=== PATIENT | male | born 1950 | race Caucasian/White ===

== ENCOUNTER 2020-10-10 09:07 | Emergency (ER) | payer BC, SELFPAY ==
[2020-10-10 09:20] VITALS: BP 140/63; PULSE 73; RESP 18; TEMP 37.1; O2SAT 98
--- NOTE | 2020-10-10 10:00 | ED.URI ---
HPI - URI/Sore Throat General Chief Complaint: Upper Respiratory Infection Stated Complaint: Congestion,Cough Time Seen by Provider: 10/10/20 09:44 Source: patient and RN notes reviewed Mode of arrival: ambulatory Limitations: no limitations History of Present Illness HPI Narrative: Patient presents today with a 1 week history of postnasal drip and a 3-day history of severe cough that has worsened since last night. Also reports rhinorrhea. Patient was exposed to RSV over 1 week ago by his 1-year-old granddaughter who contracted it at daycare. Patient has been taking Tylenol and cough drops at home without much relief. MD elicited complaint: cough Related Data Home Medications Medication Instructions Recorded Confirmed amlodipine 10/10/20 aspirin [Adult Low Dose Aspirin] 81 mg PO DAILY 10/10/20 10/10/20 atorvastatin 10/10/20 carvedilol 10/10/20 cholecalciferol (vitamin D3) 25 mcg PO DAILY 10/10/20 10/10/20 [Vitamin D3] ezetimibe mg 10/10/20 metformin mg PO 10/10/20 mirabegron [Myrbetriq] mg PO 10/10/20 omeprazole 10/10/20 vitamin A80-hyeho acid 1 tablet PO DAILY 10/10/20 10/10/20 Allergies Allergy/AdvReac Type Severity Reaction Status Date / Time gabapentin Allergy Itching Verified 10/10/20 09:29 Review of Systems Review of Systems: CONSTITUTIONAL: Denies body aches, fever, chills, or sweats. EYES: Denies visual changes, redness, or discharge. ENT: Denies congestion, sore throat, or otalgia.+ Rhinorrhea, postnasal drip CARDIOVASCULAR: Denies chest pain, palpitations, or edema. RESPIRATORY: Denies dyspnea.+ Cough GASTROINTESTINAL: Denies abdominal pain, nausea, vomiting, or diarrhea. GENITOURINARY: Denies dysuria or hematuria. SKIN: Denies rash, itching, or wounds. MUSCULOSKELETAL: Denies back pain, joint pain, or myalgia. NEUROLOGIC: Denies headache, numbness, tingling, or weakness. PSYCH: Denies depression or anxiety. [facility] Past Medical History Medical History (Updated 10/10/20 @ 10:04 by Diane Persaud, HEAD BUCKER, ) Diabetes High cholesterol Hypertension Sleep apnea Comments At time of signature, I have reviewed and agree with nursing past medical, surgical, social and family history unless otherwise noted. Please see nursing chart for further information. There is no relevant family history pertinent to the presenting complaint Exam Narrative: GENERAL: Well-appearing, well-nourished, and in no acute distress. HEAD: Normocephalic, atraumatic. EYES: EOMI. No redness or drainage. Conjunctivae normal. ENT: Mucous membranes pink and moist. Nares clear. No rhinorrhea. TMs normal bilaterally. Throat normal. Uvula midline. NECK: Normal AROM. Supple. No lymphadenopathy. CHEST: No respiratory distress. Clear to auscultation. Frequent harsh cough HEART: Regular rate and rhythm. No murmur appreciated. Normal peripheral pulses. EXTREMITIES: Normal range of motion. No edema. SKIN: Warm, dry, no rash. Capillary refill normal. Normal skin turgor. NEURO: No focal deficits. Alert and oriented x3. Gait steady. PSYCH: Normal affect. No signs of depression or anxiety. Course Vital Signs Vital signs: Vital Signs Temperature 98.8 F 10/10/20 09:20 Pulse Rate 73 10/10/20 09:20 Respiratory Rate 18 10/10/20 09:20 Blood Pressure 140/63 10/10/20 09:20 Pulse Oximetry 98 10/10/20 09:20 Temperature 98.8 F 10/10/20 09:20 Pulse Rate 73 10/10/20 09:20 Respiratory Rate 18 10/10/20 09:20 Blood Pressure 140/63 10/10/20 09:20 Pulse Oximetry 98 10/10/20 09:20 Reviewed. Pt has been instructed to follow up with his PCP regarding his elevated blood pressure today. MDM - URI/Sore Throat Differential Diagnosis Differential diagnosis: Likely upper respiratory infection, viral infection, bronchitis and other (RSV, COVID-19) Lab Data Attestation: I reviewed the patient's lab results. Labs: RSV Positive
== END 2020-10-10 10:12 | disposition home or self-care (01) ==
PROVIDERS: Emergency Provider Nurse Practitioner; PCP Internal Medicine
DX: J21.0 Acute bronchiolitis due to respiratory syncytial virus (principal); E11.9 Type 2 diabetes mellitus without complications; E78.00 Pure hypercholesterolemia, unspecified; I10 Essential (primary) hypertension; G47.33 Obstructive sleep apnea (adult) (pediatric); Z79.82 Long term (current) use of aspirin
CPT/HCPCS: 87420; 99213; G0463

== ENCOUNTER → 2021-08-23 08:15 | Outpatient (CLI) | payer MEDICARE, SELFPAY ==
--- NOTE | ~2021-08-23 | MMUS_ITS ---
EXAMINATION: MM diagnostic mammo unilat LT, US breast LT complete HISTORY: Left breast tenderness TECHNIQUE: Left CC and bilateral MLO views. CAD analysis was submitted and interpreted. High resoluti on complete left breast ultrasound was performed. COMPARISON: None BREAST PARENCHYMAL COMPOSITION: There are scattered areas of fibroglandular density. FINDINGS: MAMMOGRAPHIC FINDINGS: Bilateral gynecomastia, mild on the left, minimal on the right. No suspicious mass, architectural distortion, malignant calcification, skin thickening or retraction is evident. Minimal left breast benign calcification. ULTRASOUND: There is fibroglandular stroma in the subareolar area consistent with gynecomastia. No suspicious mas s or shadowing or suspicious vascularity is evident. IMPRESSION: Bilateral gynecomastia, greater on the left BI-RADS Category 2: Benign finding(s). Reviewed, dictated and finalized at location A. IMPRESSION: Bilateral gynecomastia, greater on the left BI-RADS Category 2: Benign finding(s).
== END ==
PROVIDERS: PCP Internal Medicine; Visit Provider Internal Medicine
DX: N64.4 Mastodynia (principal)
CPT/HCPCS: 76641; 77065

== ENCOUNTER 2022-01-02 08:18 | Emergency (ER) | payer MEDICARE, SELFPAY ==
[2022-01-02 08:30] VITALS: BP 146/71; PULSE 74; RESP 18; TEMP 36.6; O2SAT 99
[2022-01-02 08:34] VITALS: BP 146/71; PULSE 74; RESP 18; TEMP 36.6; O2SAT 99
--- NOTE | 2022-01-02 08:35 | ED.URI ---
HPI - URI/Sore Throat General Chief Complaint: Upper Respiratory Infection Stated Complaint: Coughing, Ears Irritation, Headaches Time Seen by Provider: 01/02/22 08:35 Source: patient Mode of arrival: ambulatory Limitations: no limitations History of Present Illness HPI Narrative: Mr. Cooney is a 71-year-old male patient presenting to the clinic today with complaints of cough, bilateral ear discomfort, headache, and nasal congestion. He denies any fever or chills. He reports the symptoms have been ongoing for approximately 3 days. MD elicited complaint: sore throat and nasal congestion Related Data Home Medications Medication Instructions Recorded Confirmed amlodipine 5 mg tablet 5 mg PO DAILY 10/10/20 01/02/22 aspirin 81 mg tablet 81 mg PO DAILY 10/10/20 01/02/22 atorvastatin 80 mg tablet 80 mg PO DAILY 10/10/20 01/02/22 carvedilol 25 mg tablet 25 mg PO DAILY 10/10/20 01/02/22 cholecalciferol (vitamin D3) 25 25 mcg PO DAILY 10/10/20 01/02/22 mcg (1,000 unit) capsule (Vitamin D3) ezetimibe 10 mg tablet 10 mg PO DIRECTED 10/10/20 01/02/22 metformin 500 mg tablet,extended 500 mg PO DIRECTED 10/10/20 01/02/22 release 24 hr omeprazole 20 mg capsule,delayed 20 mg PO DAILY 10/10/20 01/02/22 release vitamin B12 0.5 mg-folic acid 1 mg 1 tablet PO DAILY 10/10/20 01/02/22 tablet Allergies Allergy/AdvReac Type Severity Reaction Status Date / Time gabapentin Allergy Itching Verified 01/02/22 08:23 Review of Systems Review of Systems: Pertinent positives per HPI. Patient denies any fever, chills, rash, visual changes, dizziness, shortness of breath, chest pain, palpitations, nausea, vomiting, diarrhea, constipation, abdominal pain, or any urinary issues. PMFSH Past Medical History Medical History Diabetes High cholesterol Hypertension Sleep apnea Comments At the time of my signature, I reviewed and agree with the nursing past medical, surgical, social, and family history. There is no relevant family history pertinent to the patient complaint. Exam Narrative: General: Well-developed, well nourished, in no apparent distress Head: Normocephalic, atraumatic Eyes: Pupils equally round and reactive to light bilaterally, EOM intact, sclera and conjunctive clear, no discharge, lids normal Ears: TMs intact and clear, ear canals clear, no drainage, grossly hearing normal. Nose: Nares patent, clear nasal discharge, no inflammation, no sinus tenderness. Mouth: Oral pharynx without lesions or masses, good dentition, MMM. Neck: Supple, trachea midline, no enlargement of anterior or posterior cervical nodes, no thyroid masses or goiter palpable. Cardio: Regular rate and rhythm, s1 and s2 normal, no murmur appreciated. Resp: Clear to auscultation bilaterally, no rhonchi, rales, wheezing or rubs Course Course Emergency Course: Portions of this record may have been created with voice recognition software. Level of Care: Express Care Visit Vital Signs Vital signs: Vital Signs Temperature 36.6 C 01/02/22 08:30 Pulse Rate 74 01/02/22 08:30 Respiratory Rate 18 01/02/22 08:30 Blood Pressure 146/71 H 01/02/22 08:30 Pulse Oximetry 99 01/02/22 08:30 Oxygen Delivery Room Air 01/02/22 08:30 Temperature 36.6 C 01/02/22 08:34 Pulse Rate 74 01/02/22 08:34 Respiratory Rate 18 01/02/22 08:34 Blood Pressure 146/71 H 01/02/22 08:34 Pulse Oximetry 99 01/02/22 08:34 Oxygen Delivery Room Air 01/02/22 08:34 Vital signs reviewed MDM - URI/Sore Throat MDM Narrative Medical decision making narrative: At the time of the patient is resting comfortably on the exam table. Differential Diagnosis Differential diagnosis: Likely upper respiratory infection, otitis media, sinusitis, viral infection, bronchitis, influenza, pharyngitis and other (covid) Discharge Plan Discharge Clinical Impression: Upper respirat
== END 2022-01-02 08:42 | disposition home or self-care (01) ==
PROVIDERS: Emergency Provider Nurse Practitioner Family; PCP Internal Medicine
DX: J06.9 Acute upper respiratory infection, unspecified (principal); H10.32 Unspecified acute conjunctivitis, left eye; H69.90 Unspecified Eustachian tube disorder, unspecified ear; Z79.82 Long term (current) use of aspirin; E11.9 Type 2 diabetes mellitus without complications; E78.00 Pure hypercholesterolemia, unspecified; I10 Essential (primary) hypertension; G47.30 Sleep apnea, unspecified
CPT/HCPCS: 99213; G0463